=== PATIENT | male | born 1975 | race Caucasian/White ===

== ENCOUNTER 2017-01-09 10:44 | Emergency (ER) | payer BC, OTHER ==
[~2017-01-09] VITALS: Ht 182.8 cm; Wt 77.1 kg
[~2017-01-09 10:44] MED LIST: 'PARAFON FORTE500 M1 PO; BACTRIM DS 8001 TA1 PO; CEPHALEXIN500 M1 PO; HYDROCODONE BIT1 T11 PO; NAPROSYN500 MG PO; NORCO 5-325 TA1 EACH PO; VOLTAREN50 M1 PO; ZOFRAN4 MG PO
[2017-01-09] MEDS ORDERED: HYDROCODONE BIT1 T11 PO (13:15)
== END 2017-01-09 13:19 | disposition home or self-care (01) ==
LOC: ED 10:44
DX: S92.401A Displaced unspecified fracture of right great toe, initial encounter for closed fracture (principal); F17.200 Nicotine dependence, unspecified, uncomplicated; W18.09XA Striking against other object with subsequent fall, initial encounter; Y93.89 Activity, other specified; Y92.9 Unspecified place or not applicable; Y99.9 Unspecified external cause status

== ENCOUNTER 2017-04-30 12:36 | Emergency (ER) | payer BC, OTHER ==
[~2017-04-30] VITALS: Ht 182.8 cm; Wt 78.0 kg
[2017-04-30 13:47] LABS: BASO # 0.1 10*3/uL (0.0-0.1); BASO % 0.7 % (0.0-1.0); EOS # 0.2 10*3/uL (0.0-0.4); EOS % 1.9 % (1.0-4.0); HEMATOCRIT 45.5 % (42.0-52.0); HEMOGLOBIN 15.9 g/dl (14.0-18.0); LYMPH # 2.5 10*3/uL (1.3-4.4); LYMPH % 31.1 % (27.0-41.0); MEAN CELL VOLUME 90.3 fl (80.0-94.0); MEAN CORPUSCULAR HGB 31.5 pg (27.0-31.0); MEAN CORPUSCULAR HGB CONC 34.9 g/dl (33.0-37.0); MONO # 0.8 10*3/uL (0.1-1.0); MONO % 9.3 % (3.0-9.0); NEUT # 4.6 10*3/uL (2.3-7.9); NEUT % 56.9 % (47.0-73.0); PLATELET COUNT AUTOMATED 215 10*3/uL (130-400); RED BLOOD COUNT 5.04 10*6/uL (4.50-5.90); RED CELL DISTRI WIDTH 12.7 % (0-14.5); WHITE BLOOD COUNT 8.1 10*3/uL (4.8-10.8)
[2017-04-30 14:01] LABS: ALBUMIN 4.1 gm/dl (3.1-4.5); ALKALINE PHOSPHATASE 71 U/L (45-117); BUN 10 mg/dl (7-24); CHLORIDE 106 mmol/L (98-107); CREATININE 1.19 mg/dL (0.70-1.30); LIPASE 362 U/L (73-393); POTASSIUM 4.4 mmol/L (3.5-5.1); SGOT/AST 17 IU/L (3-35); SGPT/ALT 17 U/L (12-78); SODIUM 140 mmol/L (136-145); TOTAL PROTEIN 7.7 gm/dL (6.4-8.2)
[2017-04-30 14:10] LABS: BILIRUBIN NEGATIVE (NEGATIVE); BLOOD NEGATIVE (NEGATIVE); CLARITY CLEAR (CLEAR); COLOR YELLOW (YELLOW); GLUCOSE NEGATIVE (NEGATIVE); KETONE NEGATIVE (NEGATIVE); LEUKO ESTERASE NEGATIVE (NEGATIVE); NITRITE NEGATIVE (NEGATIVE); PH 5.5 (5.0-9.0); SPECIFIC GRAVITY <= 1.005 (1.005-1.030); UROBILINOGEN 0.2 E.U./dl (0.2-1.0)
[2017-04-30 14:20] LABS: RBC 0-2 rbc/hpf (0-2)
[2017-04-30] MEDS ORDERED: ROBAXIN500 M1 PO (15:40)
[2017-04-30] MEDS ORDERED: MOBIC7.5 MG PO (15:40)
== END 2017-04-30 15:42 | disposition home or self-care (01) ==
LOC: ED 12:36
PROVIDERS: Physician Assistant
DX: S33.5XXA Sprain of ligaments of lumbar spine, initial encounter (principal); S39.91XA Unspecified injury of abdomen, initial encounter; X58.XXXA Exposure to other specified factors, initial encounter; Y93.89 Activity, other specified; Y92.89 Other specified places as the place of occurrence of the external cause; Y99.8 Other external cause status

== ENCOUNTER 2019-01-09 22:25 | Emergency (ER) | payer OTHER ==
[~2019-01-09] VITALS: Ht 172.7 cm; Wt 63.5 kg
[~2019-01-09 22:25] MED LIST changes: +MOBIC7.5 MG PO; +ROBAXIN500 M1 PO
== END 2019-01-09 23:33 | disposition short-term general hospital (02) ==
LOC: ED 22:25
DX: S68.121A Partial traumatic metacarpophalangeal amputation of left index finger, initial encounter (principal); S68.123A Partial traumatic metacarpophalangeal amputation of left middle finger, initial encounter; S68.125A Partial traumatic metacarpophalangeal amputation of left ring finger, initial encounter; S68.127A Partial traumatic metacarpophalangeal amputation of left little finger, initial encounter; W31.2XXA Contact with powered woodworking and forming machines, initial encounter; Y93.89 Activity, other specified; Y92.89 Other specified places as the place of occurrence of the external cause; Y99.8 Other external cause status

== ENCOUNTER 2020-02-18 21:28 | Emergency (ER) | payer OTHER ==
[~2020-02-18] VITALS: Ht 182.8 cm; Wt 77.1 kg
[2020-02-18 22:49] LABS: BASO # 0.1 10*3/uL (0.0-0.1); BASO % 0.7 % (0.0-1.0); EOS # 0.4 10*3/uL (0.0-0.4); EOS % 3.2 % (1.0-4.0); HEMATOCRIT 41.4 % (42.0-52.0); LYMPH # 2.9 10*3/uL (1.3-4.4); LYMPH % 26.2 % (27.0-41.0); MEAN CELL VOLUME 91.2 fl (80.0-94.0); MEAN CORPUSCULAR HGB 30.8 pg (27.0-31.0); MEAN CORPUSCULAR HGB CONC 33.8 g/dl (33.0-37.0); MEAN PLATELET VOLUME 10.3 fl (9.6-12.3); MONO # 0.8 10*3/uL (0.1-1.0); MONO % 6.9 % (3.0-9.0); NEUT # 6.9 10*3/uL (2.3-7.9); NEUT % 62.7 % (47.0-73.0); PLATELET COUNT AUTOMATED 331 10*3/uL (130-400); RED BLOOD COUNT 4.54 10*6/uL (4.50-5.90); RED CELL DISTRI WIDTH 12.9 % (0-14.5); WHITE BLOOD COUNT 11.1 10*3/uL (4.8-10.8)
[2020-02-18 23:03] LABS: ALBUMIN 3.6 gm/dl (3.1-4.5); ALKALINE PHOSPHATASE 77 U/L (45-117); BUN 14 mg/dl (7-24); CHLORIDE 108 mmol/L (98-107); CREATININE 1.13 mg/dL (0.70-1.30); POTASSIUM 3.7 mmol/L (3.5-5.1); SGOT/AST 16 IU/L (3-35); SGPT/ALT 29 U/L (12-78); SODIUM 141 mmol/L (136-145); TOTAL PROTEIN 6.8 gm/dL (6.4-8.2)
[2020-02-18] MEDS ORDERED: CLINDAMYCIN HC300 MG PO ×2 (23:48→23:56)
== END 2020-02-19 00:04 | disposition home or self-care (01) ==
LOC: ED 21:28
PROVIDERS: Nurse Practitioner Family
DX: I88.9 Nonspecific lymphadenitis, unspecified (principal); F17.200 Nicotine dependence, unspecified, uncomplicated

== ENCOUNTER 2022-04-28 17:18 | Emergency (ER) | payer OTHER ==
[~2022-04-28] VITALS: Ht 182.8 cm; Wt 70.3 kg
[~2022-04-28 17:18] MED LIST changes: +CLINDAMYCIN HC300 MG PO
[2022-04-28 22:02] LABS: BASO % 0.3 % (0.0-1.0); EOS # 0.2 10*3/uL (0.0-0.4); EOS % 1.9 % (1.0-4.0); HEMATOCRIT 45.1 % (42.0-52.0); LYMPH # 0.7 10*3/uL (1.3-4.4); LYMPH % 7.6 % (27.0-41.0); MEAN CELL VOLUME 92.8 fl (80.0-94.0); MEAN CORPUSCULAR HGB 31.7 pg (27.0-31.0); MEAN CORPUSCULAR HGB CONC 34.1 g/dl (33.0-37.0); MEAN PLATELET VOLUME 9.9 fl (9.6-12.3); MONO # 0.6 10*3/uL (0.1-1.0); MONO % 6.5 % (3.0-9.0); NEUT # 8.1 10*3/uL (2.3-7.9); NEUT % 83.4 % (47.0-73.0); PLATELET COUNT AUTOMATED 236 10*3/uL (130-400); RED BLOOD COUNT 4.86 10*6/uL (4.50-5.90); RED CELL DISTRI WIDTH 12.5 % (0-14.5); WHITE BLOOD COUNT 9.7 10*3/uL (4.8-10.8)
[2022-04-28 22:19] LABS: ALKALINE PHOSPHATASE 83 U/L (45-117); BUN 15 mg/dl (7-24); CHLORIDE 106 mmol/L (98-107); CREATININE 1.26 mg/dL (0.70-1.30); POTASSIUM 4.1 mmol/L (3.5-5.1); SGOT/AST 15 IU/L (3-35); SGPT/ALT 23 U/L (12-78); SODIUM 138 mmol/L (136-145); TOTAL PROTEIN 7.2 gm/dL (6.4-8.2)
== END 2022-04-29 01:45 | disposition home or self-care (01) ==
LOC: ED 17:18
PROVIDERS: Emergency Medicine
DX: R41.82 Altered mental status, unspecified (principal); T50.991A Poisoning by other drugs, medicaments and biological substances, accidental (unintentional), initial encounter; Y92.89 Other specified places as the place of occurrence of the external cause

== ENCOUNTER 2023-09-11 06:19 | Emergency (ER) | payer OTHER ==
[~2023-09-11] VITALS: Wt 79.4 kg
[2023-09-11] MEDS ORDERED: Tetracaine Hydrochloride 0.5% 4 ML BOT OPH ONE (06:50)
== END 2023-09-11 07:04 | disposition home or self-care (01) ==
LOC: ED 06:19
DX: H16.133 Photokeratitis, bilateral (principal)